=== PATIENT | male | born 2000 | race Caucasian/White ===

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

== ENCOUNTER 2022-04-15 15:52 | Outpatient (CLI) | payer MEDICAID ==
[2022-04-15 16:11] LABS: HCT - HEMATOCRIT 44.9 % (42.0-52.0); HGB - HEMOGLOBIN 14.7 g/dL (14.0-18.0); MEAN CORPUSCULAR HEMOGLOBIN 27.2 pg (27.0-31.0); MEAN CORPUSCULAR HGB CONC 32.7 g/dL (32.0-36.0); MEAN PLATELET VOLUME 9.9 fL (7.4-11.4); RED BLOOD COUNT 5.41 10^6/uL (4.70-6.10); RED CELL DISTRIBUTION WIDTH 12.2 % (12.0-15.0); WHITE BLOOD COUNT 6.1 x10^3/uL (4.8-10.8)
[2022-04-15 16:27] LABS: ALBUMIN/GLOBULIN RATIO 1.7 (1.0-2.2); ALKALINE PHOSPHATASE 48 IU/L (42-121); ALT ALANINE AMINOTRANSFERASE 58 IU/L (10-60); AST ASPARTATE AMINOTRANSFERASE 48 IU/L (10-42); BILIRUBIN,TOTAL 0.4 mg/dL (0.2-1.0); BUN - BLOOD UREA NITROGEN 13 mg/dL (6-20); CALCIUM 10.1 mg/dL (8.5-10.3); CARBON DIOXIDE - CO2 30 mmol/L (21-32); CHLORIDE 103 mmol/L (101-111); CREATININE 0.8 mg/dL (0.6-1.2); GFR - MDRD 125 (>89); GLUCOSE 106 mg/dL (70-100); POTASSIUM 4.1 mmol/L (3.5-5.0); SODIUM 140 mmol/L (135-145); TOTAL PROTEIN 7.9 g/dL (6.7-8.2)
[2022-04-15 18:38] LABS: CRP - C-REACTIVE PROTEIN < 1.0 mg/dL (0-1.0)
== END 2022-04-15 15:53 | disposition home or self-care (01) ==
LOC: LAB 15:52
DX: R11.2 Nausea with vomiting, unspecified (principal); R19.7 Diarrhea, unspecified
CPT/HCPCS: 36415; 80053; 85027; 86140

== ENCOUNTER 2022-07-10 10:37 | Emergency (ER) | payer MEDICAID ==
[2022-07-10 11:09] VITALS: BP 141/81
--- NOTE | 2022-07-10 13:31 | ED Physician Documentation ---
PD HPI WOUND RECHECK - Stated complaint Stated Complaint: MALE - Chief complaint Chief Complaint: Wound - Histroy obtained from History obtained from: Patient (3-day history of a hard painful lump on the left side of the rectum. No fevers or chills. No changes in bowel movements.) Review of Systems Eyes: reports: Reviewed and negative Nose: reports: Reviewed and negative Cardiac: reports: Reviewed and negative PD PAST MEDICAL HISTORY - Past Medical History Cardiovascular: None Respiratory: Asthma Neuro: None Endocrine/Autoimmune: None GI: Chronic diarrhea, Other : None HEENT: None Psych: Depression, ADD/ADHD Musculoskeletal: None Derm: None - Past Surgical History Past Surgical History: No - Present Medications Home Medications: Ambulatory Orders Medication Instructions Recorded Confirmed raNITIdine [Zantac] 150 mg PO DAILY 10/17/16 07/10/22 Sumatriptan [Imitrex] 20 mg NS ONCE PRN #3 spray 02/18/19 07/10/22 Hydrocortisone Supp [Anusol-Hc] 25 mg RC Q6H PRN #30 supp 07/10/22 - Allergies Allergies/Adverse Reactions: Allergies Allergy/AdvReac Type Severity Reaction Status Date / Time bee venom protein (honey bee) Allergy Anaphylaxis Verified 07/10/22 11:06 lamotrigine [From Lamictal] Allergy Rash Verified 07/10/22 11:06 - Social History Does the pt smoke?: No Smoking Status: Never smoker Does the pt drink ETOH?: No Does the pt have substance abuse?: Yes - Immunizations Immunizations are current?: Yes - POLST Patient has POLST: No PD ED PE NORMAL - Vitals Vital signs reviewed: Yes - General General: Alert and oriented X 3, No acute distress - Abdomen Abdomen: Non tender - Rectal Rectal: Other (He has a left-sided thrombosed hemorrhoid, fairly small About 1 centimeter in diameter.) - Derm Derm: Normal color, Warm and dry - Neuro Neuro: Alert and oriented X 3, Normal speech Results - Vitals Vitals: Vital Signs - 24 hr 07/10/22 11:06 Temperature 36 C L Heart Rate 82 Respiratory 18 Rate Blood Pressure 141/81 H O2 Saturation 99 Oxygen O2 Source Room air PD MEDICAL DECISION MAKING - ED course ED course: We discussed options including incision and drainage versus conservative care with medications and he opts for the latter. Departure - Departure Disposition: 01 Home, Self Care Clinical Impression: Thrombosed hemorrhoids Condition: Good Record reviewed to determine appropriate education?: Yes Instructions: ANUSOL-HC Suppositories, ED Hemorrhoids Prescriptions: Hydrocortisone Supp [Anusol-Hc] 25 mg RC Q6H PRN #30 supp PRN Reason: Pain Comments: Return if you worsen, follow-up with your doctor in a week if not better. Forms: Activity restrictions
== END 2022-07-10 13:42 | disposition home or self-care (01) ==
LOC: ED 10:37
DX: K64.5 Perianal venous thrombosis (principal)
CPT/HCPCS: 99282

== ENCOUNTER 2024-01-30 13:51 | Outpatient (CLI) | payer MEDICAID ==
[2024-01-30 18:09] LABS: BUN - BLOOD UREA NITROGEN 11 mg/dL (6-20); CALCIUM 10.4 mg/dL (8.5-10.3); CARBON DIOXIDE - CO2 29 mmol/L (21-32); CHLORIDE 105 mmol/L (101-111); CHOL/HDL RATIO 4.6 (<5.0); CHOLESTEROL 185 mg/dL; CREATININE 0.7 mg/dL (0.6-1.3); GFR - MDRD 142 (>89); GLUCOSE 90 mg/dL (74-104); HDL CHOLESTEROL 40 mg/dL; LDL CHOLESTEROL,CALCULATED 105 mg/dL; LDL/HDL RATIO 2.6 (<3.6); POTASSIUM 4.2 mmol/L (3.5-4.5); SODIUM 139 mmol/L (135-145); TRIGLYCERIDES 199 mg/dL (48-352); VLDL CHOLESTEROL 40 mg/dL
[2024-01-30 18:16] LABS: THYROID STIMULATING HORMONE 2.24 uIU/mL (0.34-5.60)
[2024-01-30 18:19] LABS: BASOPHILS # (AUTO) 0.1 10^3/uL (0.0-0.1); BASOPHILS % (AUTO) 0.8 %; EOSINOPHILS # (AUTO) 0.1 10^3/uL (0.0-0.7); EOSINOPHILS % (AUTO) 2.2 %; HCT - HEMATOCRIT 46.8 % (42.0-52.0); HGB - HEMOGLOBIN 15.1 g/dL (14.0-18.0); LYMPHOCYTES # (AUTO) 2.5 10^3/uL (1.5-3.5); LYMPHOCYTES % (AUTO) 38.5 %; MEAN CORPUSCULAR HEMOGLOBIN 27.4 pg (27.0-31.0); MEAN CORPUSCULAR HGB CONC 32.3 g/dL (32.0-36.0); MEAN CORPUSCULAR VOLUME 84.8 fL (80.0-94.0); MEAN PLATELET VOLUME 10.4 fL (7.4-11.4); MONOCYTES # (AUTO) 0.5 10^3/uL (0.0-1.0); MONOCYTES % (AUTO) 8.2 %; NEUTROPHILS # (AUTO) 3.3 10^3/uL (1.5-6.6); NEUTROPHILS % (AUTO) 50.1 %; PLT - PLATELET COUNT 354 10^3/uL (130-450); RED BLOOD COUNT 5.52 10^6/uL (4.70-6.10); RED CELL DISTRIBUTION WIDTH 12.2 % (12.0-15.0); WHITE BLOOD COUNT 6.5 x10^3/uL (4.8-10.8)
== END 2024-01-30 13:52 | disposition home or self-care (01) ==
LOC: LAB.N 13:51
PROVIDERS: ATTEND Physician Assistant
DX: I10 Essential (primary) hypertension (principal); E78.2 Mixed hyperlipidemia; E03.9 Hypothyroidism, unspecified
CPT/HCPCS: 36415; 80048; 80061; 83721; 84439; 84443; 85025